=== PATIENT | female | born 1985 | race African-American/Black ===

== ENCOUNTER 2020-02-29 22:43 | Emergency (ER) | payer OTHER ==
[~2020-02-29] VITALS: Ht 167.6 cm; Wt 82.6 kg
--- OUTSIDE RECORDS SUMMARY | 2020-02-29 22:46 | XMS REPORT ---
Author Author [facility] Organization [facility] Address Unknown Phone Unavailable Care Team Providers Care Shredder Operator Name Role Phone NO, PCP PP Unavailable Brenda HERMAN Unavailable Unavailable Payers Payer Name Policy Type Policy Number Effective Date Expiration D ate Problems This patient has no known problems. Allergies, Adverse Reactions, Alerts Allergy Name Allergy Type Status Severity Reaction(s) Onset Date Inacti ve Date Treating Clinician Comments No Known Allergies DA Active U 2017-09-13 00:00:00 Medications This patient has no known medications. Encounters Start Date/Time End Date/Time Encounter Type Admission Type [facility] Care Department Encounter ID 2019-10-28 15:47:00 2019-10-28 17:05:00 Departed Emergency Room 1 [facility]U HERMAN [facility] [id number] 2017-08-30 09:19:00 2017-08-30 09:19:00 Outpatient C [facility] MED [id number] Results Test Description Test Time Test Comments Text Results Atomic Results Result Comments - US PELVIC COMPLETE 2019-12-20 15:06:00 Name: VANE ORTIZ Mildred : 1985 Age/S: 34 / F [address] [place] Unit #: [id number] Loc: [place] [address] Phys: Kalin Barakat MD Acct: [id number] Dis Date: Status: REG CLI PHONE #: [phone] Exam Date: 12/20/2019 1406 FAX #: Reason: PELVIC PAIN EXAMS: CPT: [id number] US PELVIC COMPLETE 80240 EXAMINATION: - US TRANSVAGINAL NON OB, - US PELVIC COMPLETE. LOCATION: B2. HISTORY: PELVIC PAIN. COMPARISON: None. TECHNIQUE: Routine transabdominal and transvaginal pelvic ultrasound was performed. FINDINGS: Transabdominal and transvaginal ultrasound of the pelvis demonstrate the uterus to be normal in size, measuring 7.7 cm in length. The endometrial stripe is within normal limits at 0.3 cm. Several nabothian cysts are seen in the cervix measuring up to 1.4 cm. The right ovary is enlarged in size secondary to a cyst and measures 5.9 x 4.8 x 3.8 cm. 3.9 cm right ovarian cyst is seen containing lacelike internal echoes. The left ovary measures 4.1 x 2.4 x 2.9 cm. Multiple follicular cysts are seen in the left ovary measuring up to 1.5 cm. There is color Doppler forest w to bilateral ovaries. No free fluid is seen within the pelvis. IMPRESSION: Complex 3.9 cm right ovarian cyst containing lacelike internal echoes, which may represent a hemorrhagic cyst. Recommend follow-up pelvic ultrasound exam in 6 weeks. Normal sonographic appearance of the uterus and left ovary. at 1506 Reported and signed by: Yunior Holt M.D. CC: Kalin Barakat MD Technologist: Leatha Preston Trnscb Date/Time: 12/20/2019 (7323) [email or web address] PAGE 1 Signed Report Name: VANE ORTIZ EDILBERTO Mildred : 1985 Age/S: 34 / F [address] [place] Unit #: [id number] Loc: [place] [address] Phys: Kalin Barakat MD Acct: [id number] Dis Date: Status: REG CLI PHONE #: [phone] Exam Date: 12/20/2019 1409 FAX #: Reason: PELVIC PAIN EXAMS: CPT: [id number] US PELVIC COMPLETE 54339 <Continued> Orig Print D/T: S: 12/20/2019 (1506) Probe: PAGE 2 Signed Report - US TRANSVAGINAL NON OB 2019-12-20 15:06:00 N emelia: VANE ORTIZ GABRIELH [place] : 1985 Age/S: 34 / F [address] [place] Unit #: [id number] Loc: [place] [address] Phys: Kalin Barakat MD Acct: [id number] Dis Date: Status: REG CLI PHONE #: [phone] Exam Date: 12/20/2019 1426 FAX #: Reason: PELVIC PAIN EXAMS: CPT: [id number] [place] [address] EXAMINATION: - US TRANSVAGINAL NON OB, - US PELVIC COMPLETE. LOCATION: B2. HISTORY: PELVIC PAIN. COMPARISON: None. TECHNIQUE: Routine transabdominal and transvaginal pelvic ultrasound was performed. FINDINGS: Transabdominal and transvaginal ultrasound of the pelvis demonstrate the uterus to be normal in size, measuring 7.7 cm in length. The endometrial stripe is within normal limits at 0.3 cm. Several nabothian cysts are seen in the cervix measuring up to 1.4 cm. The right ovary is enlarged in size secondary to a cyst and measures 5.9 x 4.8 x 3.8 cm. 3.9 cm right ovarian cyst is seen containing lacelike internal echoes. The left ovary measures 4.1 x 2.4 x 2.9 cm. Multiple follicular cysts are seen in the left ovary measuring up to 1.5 cm. There is color Doppler forest w to bilateral ovaries. No free fluid is seen within the pelvis. IMPRESSION: Complex 3.9 cm right ovarian cyst containing lacelike internal echoes, which may represent a hemorrhagic cyst. Recommend follow-up pelvic ultrasound exam in 6 weeks. Normal sonographic appearance of the uterus and left ovary. at 1506 Reported and signed by: Yunior Holt M.D. CC: Kalin Barakat MD Technologist: Leatha Preston Trnscb Date/Time: 12/20/2019 (6262) [email or web address] PAGE 1 Signed Report Name: VANE ORTIZ [place] : 1985 Age/S: 34 / F [address] [place] Unit #: [id number] Loc: [place] [address] Phys: Kalin Barakat MD Acct: [id number] Dis Date: Status: REG CLI PHONE #: [phone] Exam Date: 12/20/2019 1427 FAX #: Reason: PELVIC PAIN EXAMS: CPT: [id number] [place] [address] <Continued> Orig Print D/T: S: 12/20/2019 (1509) Probe: [id number] PAGE 2 Signed Report CXR 2 VIEW - HOPD 2019-10-28 16:57:00 [place] [address] Patient Name: VANE ORTIZ MR #: [id number] : 1985 Age/Sex: 34/F Req #: [id number] Adm Physician: Ordered by: CHU HERMAN MD Report #: [id number] Location: [facility] Room/Bed: Procedure: [id number] HOPD/CXR 2 VIEW - HOPD Exam Date: 10/28/19 Exam Time: 1635 REPORT STATUS: Signed EXAMINATION: CXR 2 VIEW - HOPD INDICATION: Cough and fever. COMPARISON: None FINDINGS: PA and lateral views TUBES and LINES: None. LUNGS: Lungs are well inflated. There is no evidence of pneumonia or pulmonary edema. PLEURA: No pleural effusion or pneumothorax. HEART AND MEDIASTINUM: The cardiomediastinal silhouette is unremarkable. BONES AND SOFT TISSUES: No acute osseous lesion. Soft tissues are unremarkable. UPPER ABDOMEN: No free air under the diaphragm. IMPRESSION: No acute thoracic abnormality. Signed by: Dr. Brendan Laboy MD on 10/28/2019 4:58 PM Dictated By: BRENDAN LABOY MD 57 Transcribed By: JEREMIAS on 10/28/191657 COPY TO: CHU HERMAN MD [facility] MAMMO DIAGNOSTIC UNI W/CAD-RIGHT 2017-08-30 13:07:27 Dictation location: R 16BILATERAL BREAST ULTRASOUND GUIDED CORE BIOPSY WITH MARKER PLACEMENT ANDPOST- PROCEDURE BILATERAL MAMMOGRAM: History: The patient presents for ultrasound- guided core biopsy of bothbreasts.Comparison made to prior ultrasound dated 08/05/2017.Informed consent was obtained from the patient which included adiscussion of risks, benefits and alternatives.LEFT BREAST 6:00, 3 CM FROM THE NIPPLE:Using ultrasound guidance, aseptic technique and %1 lidocaine localanesthesia, an incision was made in the skin with a scalpel. A 14 gaugecore biopsy needle was placed to the level of the nodule via coaxialtechnique using ultrasound guidance and multiple cores were obtained. Aribbon-shaped marker was deployed at the biopsy site. The patienttolerated the procedure without difficulty. The tissue specimens wereplaced in formalin and submitted to the pathologist for histologicanalysis. Pressure was held on the biopsy site until all bleedingsubsided. The estimated blood loss was negligible. The skin incision wasclosed with Steri-strips. RIGHT BREAST 6:00, 6 CM FROM THE NIPPLE:Using ultrasound guidance, aseptic technique and %1 lidocaine localanesthesia, an incision was made in the skin with a scalpel. A 14 gaugecore biopsy needle was placed to the level of the nodule via coaxialtechnique using ultrasound guidance and multiple cores were obtained. Aribbon-shaped marker was deployed at the biopsy site. The patienttolerated the procedure without difficulty. The tissue specimens wereplaced in formalin and submitted to the pathologist for histologicanalysis. Pressure was held on the biopsy site until all bleedingsubsided. The estimated blood loss was negligible. The skin incision wasclosed with Steri-strips. RIGHT BREAST 8:00, 4 CM FROM THE NIPPLE:Using ultrasound guidance, aseptic technique and %1 lidocaine localanesthesia, an incision was made in the skin with a scalpel. A 14 gaugecore biopsy needle was placed to the level of the nodule via coaxialtechnique using ultrasound guidance and multiple cores were obtained. Awing-shaped marker was deployed at the biopsy site. The patienttolerated the procedure without difficulty. The tissue specimens wereplaced in formalin and submitted to the pathologist for histologicanalysis. Pressure was held on the biopsy site until all bleedingsubsided. The estimated blood loss was negligible. The skin incision wasclosed with Steri-strips. Postprocedure mammogram was performed to evaluate clip placement. Pleasenote, a diagnostic mammogram was not performed. The biopsy markers arein the expected location. The patient tolerated the procedure well and left the department in goodcondition. Post biopsy instructions were reviewed with the patient fadumo copy was given to her.IMPRESSION:1. Three-site Ultrasound guided core biopsy of the left breast at 6:00,right breast at 6:00 and right breast 8:00 with marker placement. 2. Histopathology is pending. [facility] MAMMO DIAGNOSTIC UNI W/CAD-LEFT 2017-08-30 13:07:27 Dictation location: R 16BILATERAL BREAST ULTRASOUND GUIDED CORE BIOPSY WITH MARKER PLACEMENT ANDPOST- PROCEDURE BILATERAL MAMMOGRAM: History: The patient presents for ultrasound- guided core biopsy of bothbreasts.Comparison made to prior ultrasound dated 08/05/2017.Informed consent was obtained from the patient which included adiscussion of risks, benefits and alternatives.LEFT BREAST 6:00, 3 CM FROM THE NIPPLE:Using ultrasound guidance, aseptic technique and %1 lidocaine localanesthesia, an incision was made in the skin with a scalpel. A 14 gaugecore biopsy needle was placed to the level of the nodule via coaxialtechnique using ultrasound guidance and multiple cores were obtained. Aribbon-shaped marker was deployed at the biopsy site. The patienttolerated the procedure without difficulty. The tissue specimens wereplaced in formalin and submitted to the pathologist for histologicanalysis. Pressure was held on the biopsy site until all bleedingsubsided. The estimated blood loss was negligible. The skin incision wasclosed with Steri-strips. RIGHT BREAST 6:00, 6 CM FROM THE NIPPLE:Using ultrasound guidance, aseptic technique and %1 lidocaine localanesthesia, an incision was made in the skin with a scalpel. A 14 gaugecore biopsy needle was placed to the level of the nodule via coaxialtechnique using ultrasound guidance and multiple cores were obtained. Aribbon-shaped marker was deployed at the biopsy site. The patienttolerated the procedure without difficulty. The tissue specimens wereplaced in formalin and submitted to the pathologist for histologicanalysis. Pressure was held on the biopsy site until all bleedingsubsided. The estimated blood loss was negligible. The skin incision wasclosed with Steri-strips. RIGHT BREAST 8:00, 4 CM FROM THE NIPPLE:Using ultrasound guidance, aseptic technique and %1 lidocaine localanesthesia, an incision was made in the skin with a scalpel. A 14 gaugecore biopsy needle was placed to the level of the nodule via coaxialtechnique using ultrasound guidance and multiple cores were obtained. Awing-shaped marker was deployed at the biopsy site. The patienttolerated the procedure without difficulty. The tissue specimens wereplaced in formalin and submitted to the pathologist for histologicanalysis. Pressure was held on the biopsy site until all bleedingsubsided. The estimated blood loss was negligible. The skin incision wasclosed with Steri-strips. Postprocedure mammogram was performed to evaluate clip placement. Pleasenote, a diagnostic mammogram was not performed. The biopsy markers arein the expected location. The patient tolerated the procedure well and left the department in goodcondition. Post biopsy instructions were reviewed with the patient fadumo copy was given to her.IMPRESSION:1. Three-site Ultrasound guided core biopsy of the left breast at 6:00,right breast at 6:00 and right breast 8:00 with marker placement. 2. Histopathology is pending. US GUIDED NEEDLE PLACEMENT SI 2017-08-30 13:07:27 Dictation location: R 16BILATERAL BREAST ULTRASOUND GUIDED CORE BIOPSY WITH MARKER PLACEMENT ANDPOST- PROCEDURE BILATERAL MAMMOGRAM: History: The patient presents for ultrasound- guided core biopsy of bothbreasts.Comparison made to prior ultrasound dated 08/05/2017.Informed consent was obtained from the patient which included adiscussion of risks, benefits and alternatives.LEFT BREAST 6:00, 3 CM FROM THE NIPPLE:Using ultrasound guidance, aseptic technique and %1 lidocaine localanesthesia, an incision was made in the skin with a scalpel. A 14 gaugecore biopsy needle was placed to the level of the nodule via coaxialtechnique using ultrasound guidance and multiple cores were obtained. Aribbon-shaped marker was deployed at the biopsy site. The patienttolerated the procedure without difficulty. The tissue specimens wereplaced in formalin and submitted to the pathologist for histologicanalysis. Pressure was held on the biopsy site until all bleedingsubsided. The estimated blood loss was negligible. The skin incision wasclosed with Steri-strips. RIGHT BREAST 6:00, 6 CM FROM THE NIPPLE:Using ultrasound guidance, aseptic technique and %1 lidocaine localanesthesia, an incision was made in the skin with a scalpel. A 14 gaugecore biopsy needle was placed to the level of the nodule via coaxialtechnique using ultrasound guidance and multiple cores were obtained. Aribbon-shaped marker was deployed at the biopsy site. The patienttolerated the procedure without difficulty. The tissue specimens wereplaced in formalin and submitted to the pathologist for histologicanalysis. Pressure was held on the biopsy site until all bleedingsubsided. The estimated blood loss was negligible. The skin incision wasclosed with Steri-strips. RIGHT BREAST 8:00, 4 CM FROM THE NIPPLE:Using ultrasound guidance, aseptic technique and %1 lidocaine localanesthesia, an incision was made in the skin with a scalpel. A 14 gaugecore biopsy needle was placed to the level of the nodule via coaxialtechnique using ultrasound guidance and multiple cores were obtained. Awing-shaped marker was deployed at the biopsy site. The patienttolerated the procedure without difficulty. The tissue specimens wereplaced in formalin and submitted to the pathologist for histologicanalysis. Pressure was held on the biopsy site until all bleedingsubsided. The estimated blood loss was negligible. The skin incision wasclosed with Steri-strips. Postprocedure mammogram was performed to evaluate clip placement. Pleasenote, a diagnostic mammogram was not performed. The biopsy markers arein the expected location. The patient tolerated the procedure well and left the department in goodcondition. Post biopsy instructions were reviewed with the patient fadumo copy was given to her.IMPRESSION:1. Three-site Ultrasound guided core biopsy of the left breast at 6:00,right breast at 6:00 and right breast 8:00 with marker placement. 2. Histopathology is pending. US GUIDED NEEDLE PLACEMENT SI 2017-08-30 13:07:27 Dictation location: R 16BILATERAL BREAST ULTRASOUND GUIDED CORE BIOPSY WITH MARKER PLACEMENT ANDPOST- PROCEDURE BILATERAL MAMMOGRAM: History: The patient presents for ultrasound- guided core biopsy of bothbreasts.Comparison made to prior ultrasound dated 08/05/2017.Informed consent was obtained from the patient which included adiscussion of risks, benefits and alternatives.LEFT BREAST 6:00, 3 CM FROM THE NIPPLE:Using ultrasound guidance, aseptic technique and %1 lidocaine localanesthesia, an incision was made in the skin with a scalpel. A 14 gaugecore biopsy needle was placed to the level of the nodule via coaxialtechnique using ultrasound guidance and multiple cores were obtained. Aribbon-shaped marker was deployed at the biopsy site. The patienttolerated the procedure without difficulty. The tissue specimens wereplaced in formalin and submitted to the pathologist for histologicanalysis. Pressure was held on the biopsy site until all bleedingsubsided. The estimated blood loss was negligible. The skin incision wasclosed with Steri-strips. RIGHT BREAST 6:00, 6 CM FROM THE NIPPLE:Using ultrasound guidance, aseptic technique and %1 lidocaine localanesthesia, an incision was made in the skin with a scalpel. A 14 gaugecore biopsy needle was placed to the level of the nodule via coaxialtechnique using ultrasound guidance and multiple cores were obtained. Aribbon-shaped marker was deployed at the biopsy site. The patienttolerated the procedure without difficulty. The tissue specimens wereplaced in formalin and submitted to the pathologist for histologicanalysis. Pressure was held on the biopsy site until all bleedingsubsided. The estimated blood loss was negligible. The skin incision wasclosed with Steri-strips. RIGHT BREAST 8:00, 4 CM FROM THE NIPPLE:Using ultrasound guidance, aseptic technique and %1 lidocaine localanesthesia, an incision was made in the skin with a scalpel. A 14 gaugecore biopsy needle was placed to the level of the nodule via coaxialtechnique using ultrasound guidance and multiple cores were obtained. Awing-shaped marker was deployed at the biopsy site. The patienttolerated the procedure without difficulty. The tissue specimens wereplaced in formalin and submitted to the pathologist for histologicanalysis. Pressure was held on the biopsy site until all bleedingsubsided. The estimated blood loss was negligible. The skin incision wasclosed with Steri-strips. Postprocedure mammogram was performed to evaluate clip placement. Pleasenote, a diagnostic mammogram was not performed. The biopsy markers arein the expected location. The patient tolerated the procedure well and left the department in goodcondition. Post biopsy instructions were reviewed with the patient fadumo copy was given to her.IMPRESSION:1. Three-site Ultrasound guided core biopsy of the left breast at 6:00,right breast at 6:00 and right breast 8:00 with marker placement. 2. Histopathology is pending. US BREAST COMPLETE-LEFT 2017-08-10 08:56:05 [facility] MAMMO DIAGNOSTIC EDITA W/CAD, US BREAST COMPLETE-RIGHT, US BREASTCOMPLETE-LEFTZ85.3: PERSONAL HISTORY OF MALIGNANT NEOPLASM OF BREAST.Dictation Location: [id number] Information: 31 yo female with history of gestationalgigantomastia status post reduction mammoplasty September 2010. Thepatient presents today for further evaluation of bilateral breast painand bilateral breast lumps for one month.Technique: Bilateral digital mammogram with computer assisted diagnosis. Bilateral CC, MLO and ML views were obtained. Comparison: None.Findings: The breasts are extremely dense, which lowers the sensitivity ofmammography. There is global asymmetry involving the medial and lateralcentral and lower right breast. There are no suspiciousmicrocalcifications.BILATERAL BREAST ULTRASOUND:Subsequent bilateral breast ultrasound was performed utilizing a highfrequency linear array transducer. All 4 quadrants, axilla, andretroareolar of both breasts were evaluated. Right breast:- 8:00, 4 cm from the nipple, 4.3 x 4.0 x 1.2 cm parallel,circumscribed, hypoechoic nodule. Ultrasound-guided core biopsy isrecommended.- 6:00, 6 cm from the nipple, in the region of palpable abnormality/painidentified by the patient, hypoechoic tissue with a few cystic areas andno discrete mass identified. Ultrasound-guided core biopsy isrecommended.- Axilla, lymph node normal morphology. Left breast:- 5:00, 6 cm from the nipple, in the region of pain/palpable abnormalityidentified by the patient, hypoechoic tissue without discrete mass.- 6:00, 3 cm from the nipple, 3.3 x 0.9 x 2.5 cm parallel,circumscribed, hypoechoic nodule. Ultrasound-guided core biopsy isrecommended.- 7:00, 4 cm from the nipple, 2.5 x 2.4 x 0.9 cm parallel,circumscribed, hypoechoic nodule- Axilla, lymph nodes with normal morphologyIMPRESSION: 1. Bilateral breast masses as described above. Ultrasound-guided corebiopsy of masses in the right breast at 8:00 and left breast at 6:00 isrecommended.2. Ill-defined hypoechoic tissue without discrete mass, corresponding toareas of pain/palpable abnormality identified by the patient in theright breast at 6:00 and left breast at 5:00, both similar appearing.Ultrasound-guided core biopsy of the right breast at 6:00 isrecommended.3. Additional mass in the left breast at 7:00 and hypoechoic tissue inthe left breast at 5:00. Follow up bilateral breast ultrasound isrecommended in 6 months to ensure stability.The patient was informed of the findings and recommendations at the timeof the examination.ACR BI-RADS CATEGORY: 4a-SUSPICIOUS RECOMMENDATION: TWO- SITE RIGHT BREAST ULTRASOUND-GUIDED CORE BIOPSY.ONE SITE LEFT BREAST ULTRASOUND-GUIDED CORE BIOPSY. FOLLOW-UP BILATERALBREAST ULTRASOUND IN 6 MONTHS. US BREAST COMPLETE-RIGHT 2017-08-10 08:56:05 [facility] MAMMO DIAGNOSTIC EDITA W/CAD, US BREAST COMPLETE-RIGHT, US BREASTCOMPLETE-LEFTZ85.3: PERSONAL HISTORY OF MALIGNANT NEOPLASM OF BREAST.Dictation Location: [id number] Information: 31 yo female with history of gestationalgigantomastia status post reduction mammoplasty September 2010. Thepatient presents today for further evaluation of bilateral breast painand bilateral breast lumps for one month.Technique: Bilateral digital mammogram with computer assisted diagnosis. Bilateral CC, MLO and ML views were obtained. Comparison: None.Findings: The breasts are extremely dense, which lowers the sensitivity ofmammography. There is global asymmetry involving the medial and lateralcentral and lower right breast. There are no suspiciousmicrocalcifications.BILATERAL BREAST ULTRASOUND:Subsequent bilateral breast ultrasound was performed utilizing a highfrequency linear array transducer. All 4 quadrants, axilla, andretroareolar of both breasts were evaluated. Right breast:- 8:00, 4 cm from the nipple, 4.3 x 4.0 x 1.2 cm parallel,circumscribed, hypoechoic nodule. Ultrasound-guided core biopsy isrecommended.- 6:00, 6 cm from the nipple, in the region of palpable abnormality/painidentified by the patient, hypoechoic tissue with a few cystic areas andno discrete mass identified. Ultrasound-guided core biopsy isrecommended.- Axilla, lymph node normal morphology. Left breast:- 5:00, 6 cm from the nipple, in the region of pain/palpable abnormalityidentified by the patient, hypoechoic tissue without discrete mass.- 6:00, 3 cm from the nipple, 3.3 x 0.9 x 2.5 cm parallel,circumscribed, hypoechoic nodule. Ultrasound-guided core biopsy isrecommended.- 7:00, 4 cm from the nipple, 2.5 x 2.4 x 0.9 cm parallel,circumscribed, hypoechoic nodule- Axilla, lymph nodes with normal morphologyIMPRESSION: 1. Bilateral breast masses as described above. Ultrasound-guided corebiopsy of masses in the right breast at 8:00 and left breast at 6:00 isrecommended.2. Ill-defined hypoechoic tissue without discrete mass, corresponding toareas of pain/palpable abnormality identified by the patient in theright breast at 6:00 and left breast at 5:00, both similar appearing.Ultrasound-guided core biopsy of the right breast at 6:00 isrecommended.3. Additional mass in the left breast at 7:00 and hypoechoic tissue inthe left breast at 5:00. Follow up bilateral breast ultrasound isrecommended in 6 months to ensure stability.The patient was informed of the findings and recommendations at the timeof the examination.ACR BI-RADS CATEGORY: 4a-SUSPICIOUS RECOMMENDATION: TWO- SITE RIGHT BREAST ULTRASOUND-GUIDED CORE BIOPSY.ONE SITE LEFT BREAST ULTRASOUND-GUIDED CORE BIOPSY. FOLLOW-UP BILATERALBREAST ULTRASOUND IN 6 MONTHS. [facility] MAMMO DIAGNOSTIC EDITA W/CAD 2017-08-10 08:56:05 [facility] MAMMO DIAGNOSTIC EDITA W/CAD, US BREAST COMPLETE-RIGHT, US BREASTCOMPLETE-LEFTZ85.3: PERSONAL HISTORY OF MALIGNANT NEOPLASM OF BREAST.Dictation Location: [id number] Information: 31 yo female with history of gestationalgigantomastia status post reduction mammoplasty September 2010. Thepatient presents today for further evaluation of bilateral breast painand bilateral breast lumps for one month.Technique: Bilateral digital mammogram with computer assisted diagnosis. Bilateral CC, MLO and ML views were obtained. Comparison: None.Findings: The breasts are extremely dense, which lowers the sensitivity ofmammography. There is global asymmetry involving the medial and lateralcentral and lower right breast. There are no suspiciousmicrocalcifications.BILATERAL BREAST ULTRASOUND:Subsequent bilateral breast ultrasound was performed utilizing a highfrequency linear array transducer. All 4 quadrants, axilla, andretroareolar of both breasts were evaluated. Right breast:- 8:00, 4 cm from the nipple, 4.3 x 4.0 x 1.2 cm parallel,circumscribed, hypoechoic nodule. Ultrasound-guided core biopsy isrecommended.- 6:00, 6 cm from the nipple, in the region of palpable abnormality/painidentified by the patient, hypoechoic tissue with a few cystic areas andno discrete mass identified. Ultrasound-guided core biopsy isrecommended.- Axilla, lymph node normal morphology. Left breast:- 5:00, 6 cm from the nipple, in the region of pain/palpable abnormalityidentified by the patient, hypoechoic tissue without discrete mass.- 6:00, 3 cm from the nipple, 3.3 x 0.9 x 2.5 cm parallel,circumscribed, hypoechoic nodule. Ultrasound-guided core biopsy isrecommended.- 7:00, 4 cm from the nipple, 2.5 x 2.4 x 0.9 cm parallel,circumscribed, hypoechoic nodule- Axilla, lymph nodes with normal morphology
[2020-02-29] MEDS ORDERED: KETOROLAC TROMETHAMINE 30 MG/ML VIAL IV STA (23:03)
[2020-02-29] MEDS ORDERED: ZOFRAN8 MG PO (23:10)
[2020-02-29] MEDS ORDERED: NAPROSYN500 MG PO (23:10)
[2020-02-29] MEDS ORDERED: CYCLOBENZAPRINE5 MG PO (23:10)
[2020-02-29] MEDS ORDERED: KETOROLAC TROMETHAMINE 30 MG/ML VIAL ONE (23:16)
--- NOTE | 2020-02-29 23:36 | NUR ---
PT RETURNED FROM XR TO RM 1 WITH STEADY GAIT.
--- NOTE | 2020-03-01 00:03 | Diagnostic Imaging Report ---
EXAMINATION: CXR 2 VIEW - HOPD INDICATION: Pain COMPARISON: Chest x-ray 10/28/2019 FINDINGS: TUBES and LINES: None. LUNGS: Normal lung volumes. Lungs are clear. No consolidations. PLEURA: No pleural effusion or pneumothorax. HEART AND MEDIASTINUM: The cardiomediastinal silhouette is unremarkable. BONES AND SOFT TISSUES: No acute osseous lesion. Soft tissues are unremarkable. UPPER ABDOMEN: No free air under the diaphragm. IMPRESSION: No acute thoracic radiographic abnormality. Signed by: Scott Mak DO on 02/29/2020 11:59 PM
--- NOTE | 2020-03-01 00:06 | Diagnostic Imaging Report ---
X-ray right wrist 3 views - HISTORY: Pain. COMPARISON: None available. FINDINGS: Bones: No acute displaced fracture. Osseous alignment is within normal limits. Joints: The joint spaces are well-maintained. Soft tissues: The soft tissues appear unremarkable. IMPRESSION: No acute radiographic osseous abnormality. Signed by: Scott Mak DO on 03/01/2020 12:02 AM
--- NOTE | 2020-03-01 00:16 | Diagnostic Imaging Report ---
History: Trauma Comparison studies: None Technique: Axial images were obtained from the skull base to the vertex. Coronal and sagittal reconstructions obtained from the axial data. Dose modulation, iterative reconstruction, and/or weight based adjustment of the mA/kV was utilized to reduce the radiation dose to as low as reasonably achievable. Intravenous contrast: None Findings: Scalp/skull: No abnormalities. No fractures, blastic or lytic lesions. Extra-axial spaces: No masses. No fluid collections. Brain sulci: Appropriate for age. Ventricles: Normal in size and configuration. No hydrocephalus. Parenchyma: No abnormal densities. No masses, hemorrhage, acute or chronic cortical vascular insults. Sellar/suprasellar region: No abnormalities Craniocervical junction: Patent foramen magnum. No Chiari one malformation. Incidental findings: None. IMPRESSION: No abnormalities. Signed by: Dr. Jonathon Morales M.D. on 03/01/2020 12:13 AM
--- NOTE | 2020-03-01 00:19 | Diagnostic Imaging Report ---
History: Trauma Comparison studies: None Technique: Axial images were obtained through the cervical region.. Coronal and sagittal images reconstructed from the axial data. Dose modulation, iterative reconstruction, and/or weight based adjustment of the mA/kV was utilized to reduce the radiation dose to as low as reasonably achievable. Intravenous contrast: None Findings: Fractures: None. Soft tissues: No gross abnormalities. Atlantoaxial articulation: Intact. Alignment: Slight reversal of the usual lordosis at C4-5 is positional. No scoliosis. Cervicomedullary junction: No abnormalities. The foramen magnum is patent. Vertebrae: No infection or neoplasm. Degenerative changes: None. Incidental nonobstructing retention cysts in the maxillary sinuses. IMPRESSION: 1. No cervical abnormalities. 2. Specifically, no fractures or subluxations. 3. Cannot adequately evaluate for ligament, spinal cord and or vascular abnormalities. Signed by: Dr. Jonathon Morales M.D. on 03/01/2020 12:15 AM
[2020-03-01 00:33] VITALS: BP 122/74
--- NOTE | 2020-03-01 01:04 | NUR ---
PT CALLED BACK WITH [facility] CASE #[id number]
== END 2020-03-01 00:33 | disposition home or self-care (01) ==
LOC: FSED 22:43
DX: S00.83XA Contusion of other part of head, initial encounter (principal); S16.1XXA Strain of muscle, fascia and tendon at neck level, initial encounter; S10.83XA Contusion of other specified part of neck, initial encounter; S20.212A Contusion of left front wall of thorax, initial encounter; S30.0XXA Contusion of lower back and pelvis, initial encounter; M25.531 Pain in right wrist; Y04.8XXA Assault by other bodily force, initial encounter; Y92.008 Other place in unspecified non-institutional (private) residence as the place of occurrence of the external cause
CPT/HCPCS: 29125; 70450; 71046; 72125; 73110; 96372; 99284; J1885

== ENCOUNTER 2021-01-01 10:43 | Emergency (ER) | payer OTHER ==
[~2021-01-01] VITALS: Ht 167.6 cm; Wt 86.2 kg
[~2021-01-01 10:43] MED LIST: CYCLOBENZAPRINE5 MG PO; NAPROSYN500 MG PO; ZOFRAN8 MG PO
[2021-01-01] MEDS ORDERED: ATIVAN1 MG PO (11:33)
[2021-01-01 11:44] VITALS: BP 132/70
== END 2021-01-01 11:40 | disposition home or self-care (01) ==
LOC: FSED 11:13
DX: F43.0 Acute stress reaction (principal); F41.9 Anxiety disorder, unspecified; J45.909 Unspecified asthma, uncomplicated; G40.909 Epilepsy, unspecified, not intractable, without status epilepticus
CPT/HCPCS: 99282

== ENCOUNTER 2021-06-05 20:34 | Emergency (ER) | payer OTHER ==
[~2021-06-05] VITALS: Ht 167.6 cm; Wt 92.5 kg
[~2021-06-05 20:34] MED LIST changes: +ATIVAN1 MG PO
[2021-06-05] MEDS ORDERED: IBUPROFEN 600 MG TAB PO STA (21:10)
[2021-06-05] MEDS ORDERED: IBUPROFEN 600 MG TAB ONE (21:28)
[2021-06-05] MEDS ORDERED: CIPROFLOXACIN 500 MG TAB PO ONE (21:45)
[2021-06-05] MEDS ORDERED: CEFDINIR300 MG PO (21:52)
[2021-06-05] MEDS ORDERED: IBUPROFEN600 MG PO (21:53)
[2021-06-05] MEDS ORDERED: PYRIDIUM200 MG PO (21:54)
[2021-06-05 22:05] VITALS: BP 134/78
== END 2021-06-05 22:05 | disposition home or self-care (01) ==
LOC: FSED 20:56
DX: N39.0 Urinary tract infection, site not specified (principal); G40.909 Epilepsy, unspecified, not intractable, without status epilepticus; J45.909 Unspecified asthma, uncomplicated; F41.9 Anxiety disorder, unspecified
CPT/HCPCS: 81003; 99283

== ENCOUNTER 2021-12-23 17:35 | Emergency (ER) | payer OTHER ==
[~2021-12-23] VITALS: Ht 167.6 cm; Wt 92.5 kg
[~2021-12-23 17:35] MED LIST changes: +CEFDINIR300 MG PO; +IBUPROFEN600 MG PO; +PYRIDIUM200 MG PO
[2021-12-23 20:07] VITALS: BP 126/82
== END 2021-12-23 20:07 | disposition home or self-care (01) ==
LOC: FSED 17:57
DX: O20.0 Threatened abortion (principal); D64.9 Anemia, unspecified; J45.909 Unspecified asthma, uncomplicated; G40.909 Epilepsy, unspecified, not intractable, without status epilepticus; F41.9 Anxiety disorder, unspecified
CPT/HCPCS: 36415; 76801; 80048; 84702; 85025; 99283

== ENCOUNTER 2022-04-06 21:49 | Emergency (ER) | payer OTHER ==
[~2022-04-06] VITALS: Ht 167.6 cm; Wt 92.5 kg
[2022-04-06] MEDS ORDERED: KETOROLAC TROMETHAMINE 30 MG/ML VIAL IV STA (23:22)
[2022-04-06] MEDS ORDERED: KETOROLAC TROMETHAMINE 30 MG/ML VIAL ONE (23:38)
== END 2022-04-06 23:56 | disposition home or self-care (01) ==
LOC: FSED 22:15
DX: N94.6 Dysmenorrhea, unspecified (principal); J45.909 Unspecified asthma, uncomplicated; G40.909 Epilepsy, unspecified, not intractable, without status epilepticus; F41.0 Panic disorder [episodic paroxysmal anxiety]; Z86.2 Personal history of diseases of the blood and blood-forming organs and certain disorders involving the immune mechanism
CPT/HCPCS: 80053; 81003; 81025; 85025; 99283; J1885